=== PATIENT | female | born 1985 | race Two or more races ===

== ENCOUNTER 2016-06-28 13:37 | Emergency (ER) | payer OTHER ==
[2016-06-28 13:44] VITALS: RESP 14; O2SAT 96
--- NOTE | 2016-06-28 14:15 | EDPHY ---
H & P Stated Complaint: nausea s/p BM w/ blood Time Seen by Provider: 06/28/16 14:15 - Personal History LMP (Females 10-55): 22-28 Days Ago Current Tetanus/Diphtheria Vaccine: Unsure Current Tetanus Diphtheria and Acellular Pertussis (TDAP): Unsure - Medical/Surgical History Hx Asthma: No Hx Chronic Respiratory Disease: No Hx Diabetes: No Hx Cardiac Disease: No Hx Renal Disease: No Hx Cirrhosis: No Hx Alcoholism: No Hx HIV/AIDS: No Hx Splenectomy or Spleen Trauma: No Other PMH: DENIES - Social History Smoking Status: Never smoked Constitutional: Initial Vital Signs Temperature (C) 36.4 C 06/28/16 13:42 Heart Rate 71 06/28/16 13:42 Respiratory Rate 14 06/28/16 13:42 Blood Pressure 101/69 06/28/16 13:42 O2 Sat (%) 96 06/28/16 13:42 O2 Delivery Mode Room Air Allergies/Adverse Reactions: No Known Allergies Allergy (Unverified 09/03/15 09:02) Home Medications: Medication Instructions Recorded NK [No Known Home Meds] 09/03/15 Medical Decision Making ED Course/Re-evaluation: CHIEF COMPLAINT: Left-sided abdominal pain, blood in stool. HISTORY OF PRESENT ILLNESS: The patient is a 31-year-old female who presents with one week of left abdominal pain and bloody stool. Her pain does not radiate and is moderate in nature. She denies alleviating or provoking factors. She reports that the stool is very hard and she notices the blood after her bowel movements. She denies vomiting or other complaints. Her last bowel movement was this morning. REVIEW OF SYSTEMS: A 10 point review of systems was performed and is negative with the exception of the elements mentioned in the history of present illness. PHYSICAL EXAM: HR, BP, O2 Sat, RR. Temp noted General Appearance: Alert, well hydrated, appropriate, and non-toxic appearing. Head: Atraumatic without scalp tenderness or obvious injury Eyes: Pupils equal, round, reactive to light and accommodation, EOMI, no trauma , no injection. Ears: Clear bilaterally, no perforation, normal landmarks Nose: Atraumatic, no rhinorrhea, clear. Throat: There is no erythema or exudates, no lesions, normal tonsils, mucus membranes moist. Neck: Supple, 2+ carotid upstroke, nontender, no lymphadenopathy. Respiratory: No retractions, no distress, no wheezes, and no accessory muscle use. Lungs are clear to auscultation bilaterally. Cardiovascular: Regular rate and rhythm, no murmurs, rubs, or gallops. Bilateral carotid, radial, dorsalis pedis, and posterior tibial pulses intact. Good capillary refill all extremities. Gastrointestinal: Diffuse abdominal tenderness. Abdomen is soft, non-distended, no masses, no rebound, no guarding, no peritoneal signs. Musculoskeletal: Normal active ROM of all extremities, atraumatic. Neurological: Alert, appropriate, and interactive. The patient has normal DTRs and non-focal cranial nerves, motor, sensory, and cerebellar exam. Skin: No rashes, good turgor, no nodules on palpation. Past medical history:Denies. Past surgical history:Denies. Family history:Denies. Social history:Here with daughter. DIAGNOSTICS/PROCEDURES/CRITICAL CARE TIME: Study: Pelvic ultrasound. Indication: , abdominal pain. Results: 6 week IUP. I viewed the images myself on the PACS system. DIFFERENTIAL DIAGNOSIS: The differential diagnosis for the patient's abdominal pain included but was not limited to constipation, ovarian cyst, pelvic inflammatory disease, ovarian torsion, urinary tract infection, ectopic , cholecystitis, and appendicitis. MEDICAL DECISION MAKING: The patient is a 31-year-old female who presents with left-sided abdominal pain and blood in her stool. On exam she has diffuse tenderness. I have high concern for constipation and hemorrhoids. I ordered an abdominal x-ray with 3 views. Patient's Urine is positive for . I will rule out ectopic with pelvic ultrasound. The patient's ultrasound shows an IUP of 6 weeks. The patient will be discharged with instructions to use Miralax. I discussed the results of her ultrasound with her and answered her questions. She was given return precautions and warnings prior to leaving. She is comfortable with the plan. - Data Points Laboratory Results: 06/28/16 14:18 Urine Color YELLOW Urine Appearance MODERATELY TURBID Urine pH 8.0 H (5.0-7.5) Ur Specific [place] 1.020 (1.002-1.030) Urine Protein NEGATIVE (NEGATIVE) Urine Ketones NEGATIVE (NEGATIVE) Urine Blood NEGATIVE (NEGATIVE) Urine Nitrate NEGATIVE (NEGATIVE) Urine Bilirubin NEGATIVE (NEGATIVE) Urine Urobilinogen NEGATIVE EU (0.2-1.0) Ur Leukocyte Esterase NEGATIVE (NEGATIVE) Ur Culture Indicated? NOT INDICATED (NI) Urine Glucose NEGATIVE (NEGATIVE) Urine Test POSITIVE Departure - Departure Disposition: Home, Routine, Self-Care Clinical Impression: Constipation Qualifiers: Constipation type: unspecified constipation type Qualifier Code: (K59.00) Constipation, unspecified Qualifiers: Weeks of gestation: less than 8 weeks Qualifier Code: (Z3A.01) Less than 8 weeks gestation of Hemorrhoid Qualifiers: Hemorrhoid type: unspecified Qualifier Code: (K64.9) Unspecified hemorrhoids Condition: Good Instructions: Constipation (ED), Hemorrhoids (ED) Additional Instructions: Try using Miralax for your constipation. Adjust the dose until your stool is soft. Follow up with your primary care provider this week for reevaluation. Return to the emergency department if you experience serious worsening of condition. Referrals: [facility] [Outside] - As per Instructions Report Scribed for: Zach Cooper Report Scribed by: Alessio Mcdonough Date of Report: 06/28/16 Time of Report: 14:29
[2016-06-28 14:31] LABS: COLOR YELLOW; LEUKOCYTE ESTERASE,URINE NEGATIVE (NEGATIVE); NITRITE,URINE NEGATIVE (NEGATIVE)
--- NOTE | 2016-06-28 16:15 | US ---
Ultrasound Obstetrics First Trimester June 28, 2016 1529 hours Indication: Constipation and abdominal pain. Comparison: None relevant. Findings: The uterus is unremarkable in appearance. There is an IUP. There is normal motion. A heart rate is present at 144 beats a minute. Yolk sac is 3 mm. The crown-rump length is 7.68 mm corre sponding to 6 weeks and 5 days with an estimated due date of February 16, 2017. Right ovary measures 3.7 x 1.3 x 2.5 cm with normal color Doppler flow and a resistive index of 0.50. Left ovary measures 2.7 x 2.5 x 2.4 cm with normal color Doppler flow and resistive index of 0.64. Th ere is a 1.8 x 1.8 x 1.2 cm corpus luteum. Impression: Living nelson IUP with a crown-rump length corresponding to 6 weeks 5 days and a heart beat of 144 beats per minute. Critical results relayed by Dr. Pastrana to Dr. Cooper on June 28, 2016 at 1610 hours.
[2016-06-28 16:37] VITALS: BP 128/78; PULSE 78; TEMP 98.4
== END 2016-06-28 16:30 | disposition home or self-care (01) ==
DX: O22.41 Hemorrhoids in pregnancy, first trimester (principal); O99.611 Diseases of the digestive system complicating pregnancy, first trimester; K59.00 Constipation, unspecified; Z3A.01 Less than 8 weeks gestation of pregnancy

== ENCOUNTER → 2016-10-08 | Outpatient (CLI) | payer OTHER | LOC: FIMAGING 09:50 | PROVIDERS: ATTEND Physician Assistant | DX: Z34.82 Encounter for supervision of other normal pregnancy, second trimester (principal); Z3A.21 21 weeks gestation of pregnancy ==

== ENCOUNTER 2016-11-19 20:02 | Observation (INO) | payer OTHER ==
--- NOTE | 2016-11-19 21:56 | CPEKG ---
Heart Rate: 64 RR Interval: 938 P-R Interval: 152 QRSD Interval: 82 QT Interval: 376 QTC Interval: 388 P Empire: 63 QRS Empire: 49 T Wave Empire: 54 EKG Severity - NORMAL ECG - EKG Impression: SINUS RHYTHM Electronically Signed By: Elicia Lubin 20-Nov-2016 13:51:51
[2016-11-19 22:05] LABS: % IMMATURE GRANULYOCYTES 0.9 % (0.0-1.1); ABSOLUTE IMMATURE GRANULOCYTES 0.09 10^3/uL (0.00-0.10); ADD DIFF? NO; ADD MORPH? NO; ADD SCAN? NO; ATYPICAL LYMPHOCYTE FLAG 0 (0-99); FRAGMENT RBC FLAG 0 (0-99); HEMATOCRIT 32.1 % (38.0-47.0); HEMOGLOBIN 11.2 g/dL (12.6-16.3); LEFT SHIFT FLG 0 (0-99); LIPEMIA HEMOLYSIS FLAG 90 (0-99); MEAN CELL HEMOGLOBIN CONCENTR. 34.9 g/dL (32.4-36.7); MEAN CELL VOLUME 86.1 fL (81.5-99.8); MEAN PLATELET VOLUME 10.2 fL (8.7-11.7); PLATELET CLUMPS FLAG 0 (0-99); PLATELET COUNT 201 10^3/uL (150-400); RED BLOOD CELL COUNT 3.73 10^6/uL (4.18-5.33); RED CELL DISTRIBUTION WIDTH 12.8 % (11.5-15.2)
[2016-11-19 23:25] LABS: COLOR PALE YELLOW; LEUKOCYTE ESTERASE,URINE TRACE (NEGATIVE); NITRITE,URINE NEGATIVE (NEGATIVE)
[2016-11-19 23:34] LABS: RBC,URINE 15-25 /hpf (0-3)
--- NOTE | 2016-11-20 00:10 | OBPROG ---
OBG Progress Note Assessment/Plan: Assessment: at 27w2d with abd pain and dizziness Hemodynamically stable Not in labor Exam consistent with round ligament pain and pubic symphysis separation No evidence of UTI. Cannot completely r/o intraabdominal infection such as appy but suspicion is low given completely normal vitals signs and fact pain has been ongoing for 2 months status reassuring Dizziness work-up neg (orthostatics, EKG, CBC, glucose)--pt able to ambulate without assistance, states dizziness was due specifically to pain Plan: Given info regarding pubic symphysis separation Follow-up as scheduled with her primary [employer] this week Given note to be off work for this week Continue hydration Discussed precautions to return, including fevers, worsening pain, decreased FM , vaginal bleeding, contractions, LOF, other concerns Pt expressed understanding, all questions answered 11/20/16 00:14 11/20/16 00:18 Subjective: Patient is a at 27w2d who presents for pelvic pain that has been going on for 2 months and also endorses dizziness. She has a history of an uncomplicated in 2010. She is followed this by [facility] and she states her has been uncomplicated. However, about 2 months ago she began to develop sharp pain in the bilateral groin area, and also feels like she is being "opened" when she tries to walk. She was in quite a bit of discomfort today at work ([employer] at [employer]) and her co-workers put her in a wheelchair and brought her to L&D for evaluation. She denies VB. Baby is active. She does not feel contractions. No dysuria or vaginal discharge. She states she does sometimes feel like she is going to pass out when she stands, however she states that this is specifically due to her discomfort. She started this at 110# and states she now weighs 120#. She states she was heavier in her prior , but does not know why she has lost weight between then and now. She denies any fevers, though states she has felt cold the entire . Of note she was checked by the RN at time of presentation as she was noted to be in discomfort and was found to be 1 cm dilated. PMH: denies PSH: Denies here with daughter and Objective: 11/19/16 21:50 116/65 75 20 (orthostatics WNL, see tracevue) Gen: resting, NAD. Able to stand slowly and ambulate, denies dizziness Resp: unlabored CV: RRR Abd: gravid c/w gestational age, soft, nontender Ext: no edema Moderate discomfort with lateral movement of uterus (c/w RLP) and also pressure on SI joint (c/w pelvic girdle pain) FHR: baseline 130, mod tray, + accels, no decels [place]: none UA: trace LE, 15-25 RBCs, no e/o evidence EKG: NSR POC glucose: 77 - SVE Dilation (cm): 0 Effacement (%): 0 Station: -3 Current Contraction Pattern: Other (Specify) (none) FHR Pattern Variability: Moderate Membranes: Intact Uterine Tone: Firm (nontender) ICD10 Worksheet Patient Problems: Problems Problem Status Onset Pain in symphysis pubis during Acute
== END 2016-11-20 00:28 | disposition home or self-care (01) ==
LOC: FLD 20:02
PROVIDERS: ADMIT Obstetrics & Gynecology; ATTEND Obstetrics & Gynecology
DX: O26.712 Subluxation of symphysis (pubis) in pregnancy, second trimester (principal); R10.2 Pelvic and perineal pain; R42 Dizziness and giddiness; Z3A.27 27 weeks gestation of pregnancy
CPT/HCPCS: 93005; G0378

== ENCOUNTER 2017-02-12 08:48 | Inpatient (IN) | payer OTHER ==
[2017-02-12] MEDS ORDERED: OXYTOCIN/RINGERS LACTATE 1,000 ML IV PRN (08:59)
[2017-02-12] MEDS ORDERED: OLIVE OIL 118 ML BTL ONE (08:59)
[2017-02-12] MEDS ORDERED: EPSOM SALT 454 GM TP PRN (08:59)
[2017-02-12] MEDS ORDERED: LIDOCAINE 1% 300 MG/30 ML SDV ONE (08:59)
[2017-02-12] MEDS ORDERED: LR 1,000 ML IV PRN (08:59)
[2017-02-12] MEDS ORDERED: TERBUTALINE SULFATE 1 MG/ML VIAL IV PRN (08:59)
[2017-02-12] MEDS ORDERED: OLIVE OIL 118 ML BTL MISC PRN (08:59)
[2017-02-12] MEDS ORDERED: TERBUTALINE SULFATE 1 MG/ML VIAL ONE (09:00)
[2017-02-12] MEDS ORDERED: MISOPROSTOL 200 MCG TAB ONE (09:00)
[2017-02-12] MEDS ORDERED: AMMONIA AROMATIC 1 EACH AMP IH ONE (09:00)
[2017-02-12 09:14] LABS: % IMMATURE GRANULYOCYTES 1.3 % (0.0-1.1); ABSOLUTE IMMATURE GRANULOCYTES 0.12 10^3/uL (0.00-0.10); ADD DIFF? NO; ADD MORPH? NO; ADD SCAN? NO; ATYPICAL LYMPHOCYTE FLAG 10 (0-99); FRAGMENT RBC FLAG 0 (0-99); HEMATOCRIT 35.7 % (38.0-47.0); HEMOGLOBIN 12.3 g/dL (12.6-16.3); LEFT SHIFT FLG 10 (0-99); LIPEMIA HEMOLYSIS FLAG 90 (0-99); MEAN CELL HEMOGLOBIN 29.7 pg (27.9-34.1); MEAN CELL HEMOGLOBIN CONCENTR. 34.5 g/dL (32.4-36.7); MEAN CELL VOLUME 86.2 fL (81.5-99.8); MEAN PLATELET VOLUME 10.8 fL (8.7-11.7); PLATELET CLUMPS FLAG 0 (0-99); PLATELET COUNT 185 10^3/uL (150-400); RED BLOOD CELL COUNT 4.14 10^6/uL (4.18-5.33); RED CELL DISTRIBUTION WIDTH 13.2 % (11.5-15.2)
[2017-02-12] MEDS: IBUPROFEN 600 MG TAB PO PRN ×3 (09:53→22:17)
--- NOTE | 2017-02-12 09:58 | OBPROG ---
OBG Labor Progress Note Assessment/Plan: Assessment:On admit eric q2-3 minutes exam 9/100/0 cephalic denies gbs denies medical or complications srom clear fluid 0700 Plan:expectant management of labor 02/12/17 09:57 Subjective: Came in with regular contractions eric regularly since 0500. Rom 0700 Objective: 02/12/17 09:00 - SVE Dilation (cm): 9 Effacement (%): 100 Station: 0 Dilation Complete Date: 02/12/17 Dilation Complete Time: 09:20 - Procedures Non-surgical Procedures: Amniotomy - Physical Exam General Appearance: WD/WN, alert, no apparent distress Respiratory: chest non-tender, lungs clear, normal breath sounds Cardiac/Chest: regular rate, rhythm Abdomen: normal bowel sounds Extremities: normal range of motion, Mireya's sign (negative bilaterally) DTR- Lower Extremities: Knee (R): 1+, Knee (L): 1+ (no clonus) Skin: normal color, warm/dry Neuro/Psych: no motor/sensory deficits, alert, normal mood/affect, oriented x 3 ICD10 Worksheet Patient Problems: Problems Problem Status Onset Pain in symphysis pubis during Acute
[2017-02-12] MEDS ORDERED: ACETAMINOPHEN 325 MG TAB PO PRN (09:59)
[2017-02-12] MEDS ORDERED: DOCUSATE SODIUM 100 MG CAP PO PRN (09:59)
[2017-02-12] MEDS ORDERED: SIMETHICONE 80 MG TAB CHEW PO PRN (09:59)
[2017-02-12] MEDS ORDERED: HYDROCODONE/APAP 5/325 TAB PO PRN (09:59)
[2017-02-12] MEDS ORDERED: HYDROCORTISONE 0.5% CREAM TP PRN (09:59)
--- NOTE | 2017-02-12 10:04 | OBDEL ---
Info Type: Vaginal GBS+: No Indications for Delivery: Spontaneous Labor, SROM Vaginal Delivery - Labor and Delivery Onset of Contractions Date: 02/12/17 Onset of Contractions Time: 05:00 Onset of Contractions Type: Spontaneous Rupture of Membranes Date: 02/12/17 Rupture of Membranes Time: 07:00 Rupture of Membranes Type: Spontaneous (arom forebag at delivery clear fluid) Dilation Complete Date: 02/12/17 Dilation Complete Time: 09:20 Non-surgical Procedures: Amniotomy Laceration: 2nd Degree Repair: 2-0, 3-0, Vicryl Vaginal Sponge Count Correct: Yes Vaginal Needle Count Correct: Yes Vaginal Sweep Performed: No EBL: 350 Delivery Events: None - Medications Labor Augmentation/Induction Methods Used: None [place] Data Virk Delivery Date: 02/12/17 Delivery Time: 09:23 JASVIR: 02/17/17 Gestational Age: 39 week(s) and 2 day(s) Sex of Infant: Female Score (1 Min): 9 Score (5 Min): 9 ICD10 Worksheet Patient Problems: Problems Problem Status Onset Pain in symphysis pubis during Acute
--- NOTE | 2017-02-12 10:53 | GHP ---
[f rep st] HISTORY AND PHYSICAL DATE OF ADMISSION: 02/12/2017 HISTORY OF PRESENT ILLNESS: Patient is from [facility] where able to get prenatals. Patient has been receiving routine care since early on in her . Patient is a 31-year-old 2, para 1 with an EDC of 02/16/2017 , which gives her a gestational age of 39 and 2/7 weeks, who comes in with complaint of regular contractions since 5 a.m. on 02/12/2017. States rupture of membranes at 7 a.m. on 02/12/2017. Positive bloody show, contractions that are q.2-3 minutes and painful. States feeling positive movement. MEDICAL HISTORY: Benign. SURGICAL HISTORY: Benign. FAMILY HISTORY: Noncontributory. HISTORY: 2, para 1. Previous vaginal delivery, 7 pounds 5 ounces, a female. At that delivery, patient also had an operative vaginal delivery with a vacuum. SOCIAL HISTORY: Patient is . Has a daughter who is 6. No tobacco use. No drug use. GYNECOLOGICAL HISTORY: Benign. Patient has previously used OCPs for control. LABS: Patient is A positive, antibody negative. RPR is nonreactive. Hepatitis is negative. HIV is negative. Gonorrhea and chlamydia are negative. GBS was negative per patient. PHYSICAL ASSESSMENT: GENERAL: Patient is awake, alert, oriented x3. LUNGS: Clear bilaterally. ABDOMEN: Bowel sounds are positive in all 4 quadrants. EXTREMITIES: DTRs are 1+ bilaterally. Homans sign is negative bilaterally. Patient is coping fair through the contractions that are q.2-3 minutes. PLAN OF CARE: GBS negative. Expectant management of labor. Consult physician , Dr. Chayo Freedman, as needed. /[id number]/MODL MTDD
[2017-02-12] MEDS ORDERED: METHYLERGONOVINE MAL 0.2 MG/ML INJ IM ONE (11:49)
--- NOTE | 2017-02-12 11:55 | OBPP ---
Progress Note Assessment/Plan: Assessment:up to void with assistance after delivery. FF@u-2 after void and fundal massage 350cc blood loss after up to the bathroom IV pitocin completed #1 methergine ordered before patient up to the bathroom. attempt to void completed before methergine first methergine reordered with call from nurse about increased bleeding after up to bathroom also ordered In and out cath. with assessment of patient ffu-2 . patient felt able to empty bladder when up to void. Recanted order for in and out cath Plan:keep in labor and delivery longer assess bleeding routinely. methergine po x 24h 02/12/17 09:57 02/12/17 11:50 Objective: 02/12/17 09:00 Patient ABO/Rh A POSITIVE 02/12/17 09:00 Uterine Position/Fundal Height: Umbilicus -2
[2017-02-12 16:27] VITALS: O2SAT 96
[2017-02-12] MEDS: METHYLERGONOVINE MAL 0.2 MG TAB PO SCH (19:51)
[2017-02-12 20:25] VITALS: RESP 16
[2017-02-13] MEDS: METHYLERGONOVINE MAL 0.2 MG TAB PO SCH ×2 (02:16→09:51)
[2017-02-13] MEDS: IBUPROFEN 600 MG TAB PO PRN ×2 (04:49→11:56)
--- NOTE | 2017-02-13 08:57 | OBPP ---
Progress Note Assessment/Plan: Assessment: 1) s/p PPD # 1 - pt is stable 2) Anemia - pt is asymptomatic Plan: Continue routine pp care Plan for d/c home later today Instructions reviewed with pt No Rx Cont Motrin, PNV, colace and iron Pelvic rest RTC in 4 and 6 weeks for pp check 02/13/17 08:54 Subjective: Pt seen and examined. Doing well, no complaints. Minimal cramping. Moderate lochia. Pt is OOB, dwayne regular diet, voiding without difficulty and passing flatus. No BM yet. BF without difficulty. Wants to go home today. She wants to f /u with [facility] for pp care due to insurance change. Objective: 02/13/17 04:50 Patient ABO/Rh A POSITIVE 02/12/17 09:00 Temp Pulse Resp BP Pulse Ox 37.1 C 61 16 92/61 L 96 02/12/17 19:15 02/12/17 19:15 02/12/17 19:15 02/12/17 19:15 02/12/17 19:15 Uterine Position/Fundal Height: Umbilicus -2 Uterine Tone: Firm Physical Exam - Physical Exam General Appearance: WD/WN, alert, no apparent distress Respiratory: lungs clear, normal breath sounds Cardiac/Chest: regular rate, rhythm Abdomen: normal bowel sounds, non-tender, soft, flatus (+) Extremities: non-tender, normal inspection Skin: normal color, warm/dry Neuro/Psych: alert, normal mood/affect, oriented x 3
[2017-02-13] MEDS ORDERED: IRON POLYSAC/IRON HEME 28 MG TAB PO SCH (09:00)
--- NOTE | 2017-02-13 09:02 | OBGCSDC ---
General Delivery Information - General Info : 2 Para: 1 Delivery Physician/CNM: Yadi Rivas Admission Date: 02/12/17 Labs: Patient ABO/Rh A POSITIVE 02/12/17 09:00 Hct 31.0 % (38.0-47.0) L 02/13/17 04:50 Vaginal - Diagnosis Labor: Spontaneous Rupture of Membranes Type: Spontaneous (arom forebag at delivery clear fluid) Laceration: 2nd Degree Repair: 2-0, 3-0, Vicryl Delivery Events: None - Operations/Procedures Non-surgical Procedures: Amniotomy L&D Analgesia/Anesthesia Type: Local - Hospital Course Antepartum: Anemia; Care at [facility] Intrapartum: Presented at 9 cm and ROM at 0700 02/12. Uncomplicated with 2 degree lac : Uncomplicated. Mod lochia. Mild cramping. BF without difficulty. - Delivery Non-surgical Procedures: Amniotomy L&D Analgesia/Anesthesia Type: Local [place] Data Virk Delivery Date: 02/12/17 Delivery Time: : JASVIR: 02/16/17 Gestational Age: 39 week(s) and 4 day(s) Sex of Infant: Female [place] Weight (gm): 3142 kg Score (1 Min): 9 Score (5 Min): 9 Discharge Information - Discharge Information Discharge Medications: Iron, Ibuprofen, Vitamins Condition: Good Instruction/Follow Up: Four Weeks, Six Weeks Discharge Physician/CNM: Felicia Davila
[2017-02-13 09:20] VITALS: BP 96/64; PULSE 75; TEMP 98.5
== END 2017-02-13 13:30 | disposition home or self-care (01) | DRG 775 ==
LOC: FLD 08:48 → FOB 14:32
PROVIDERS: ADMIT Advanced Practice Midwife; ATTEND Obstetrics & Gynecology
PROC: 10907ZC Drainage of Amniotic Fluid, Therapeutic from Products of Conception, Via Natural or Artificial Opening (ICD-10-PCS; principal; 2017-02-12)
PROC: 10E0XZZ Delivery of Products of Conception, External Approach (ICD-10-PCS; principal; 2017-02-12)
PROC: 0KQM0ZZ Repair Perineum Muscle, Open Approach (ICD-10-PCS; principal; 2017-02-12)
DX: O90.81 Anemia of the puerperium (principal); O70.1 Second degree perineal laceration during delivery; Z3A.39 39 weeks gestation of pregnancy; Z37.0 Single live birth
CPT/HCPCS: J2590; J3105

== ENCOUNTER 2017-09-19 22:50 | Emergency (ER) | payer MEDICAID, OTHER ==
--- NOTE | 2017-09-19 23:15 | EDPHY ---
General Time Seen by Provider: 09/19/17 23:04 Narrative: CHIEF COMPLAINT: Right ear pain x3 weeks HISTORY OF PRESENT ILLNESS: Patient complains of right-sided ear pain x3 weeks. This is intermittent pain and pressure. It comes and goes but never fully resolved. She reports some decreased hearing at time. She describes this as a muffled hearing from the right. There is no tinnitus or ringing of the ears. No headache. No neck pain or stiffness. No rash or lesion. No barotrauma. No recent scuba diving. She does not swim. She has no sore throat or cough at this time, but she did have an upper respiratory type of infection 2-3 weeks ago. She has not been evaluated for this yet. She is not taking medications for this. She has been putting garlic in her right ear with no improvement of her symptoms. REVIEW OF SYSTEMS: Ten systems reviewed and are negative unless otherwise noted in the HPI PCP: [facility] SPECIALISTS: None PAST MEDICAL HISTORY: Denies any medical diagnoses PAST SURGICAL HISTORY: No recent surgery SOCIAL HISTORY: Never smoker. No drug or alcohol use. Lives here in [place]. Works here at [employer] in [place]. FAMILY HISTORY: Noncontributory EXAMINATION General Appearance: Alert, no distress Head: normocephalic, atraumatic Eyes: Pupils equal and round, no conjunctival pallor or injection. No nystagmus. EOM symmetric ENT, Mouth: Mucous membranes moist. Uvula midline. Airway widely patent. The left EAC and TMs are unremarkable. The right EAC is clear without edema. The right TM is clear but does have moderate serous fluid behind it. There is no perforation. No erythema of the right mastoid. There are no vesicular lesions or rash preauricular, postauricular or in the EAC. Hearing is intact to normal conversation. Neck: Normal inspection, supple, non-tender. No meningeal signs. Respiratory: Lungs are clear to auscultation. No wheezing rhonchi or crackles Cardiovascular: Regular rate and rhythm. No murmur Gastrointestinal: Abdomen is soft and nontender Back: non-tender, no bony abnormalities Neurological: A&O, nonfocal, normal gait GCS 15. Skin: Warm and dry, no rash Extremities: Nontender, no pedal edema Psychiatric: Mood and affect normal DIFFERENTIAL DIAGNOSES: Including but not limited to serous otitis media, otitis media, mastoiditis, many years disease MDM: 11:15 p.m. Right serous otitis media without acute otitis media, suppurative otitis media or perforation. There are no vesicles around the external auditory canal or preauricular skin. No signs of infection to the mastoid bone. Her hearing is intact to normal conversation. No nystagmus. I do feel she would benefit from pseudoephedrine, anti-inflammatories and short course of steroid. We discussed giving doses here but she is declining these. She would like to have a prescription to take in the morning as she is afraid she would not be able to sleep. I do not feel she warrants any imaging at this time. I do not feel that many years is likely as she has no tinnitus or hearing loss at this time. She will be discharged home stable condition with instructions to follow up with primary care physician, and I have provided the ENT on-call physician for her as well. SUPERVISION: This patient was independently evaluated without direct involvement of or examination by the attending physician. - History Smoking Status: Never smoked - Objective Vital Signs: Initial Vital Signs Temperature (C) 97.9 F 09/19/17 22:53 Heart Rate 64 09/19/17 22:53 Respiratory Rate 16 09/19/17 22:53 Blood Pressure 108/68 09/19/17 22:53 O2 Sat (%) 95 09/19/17 22:53 O2 Delivery Mode Room Air Allergies/Adverse Reactions: No Known Allergies Allergy (Unverified 09/03/15 09:02) Home Medications: Medication Instructions Recorded Dexamethasone [Decadron 4 MG (*)] 8 mg PO ONCE #2 tab 09/19/17 Pseudoephedrine HCl 30 mg PO Q6 PRN #12 tablet 09/19/17 Departure - Departure Disposition: Home, Routine, Self-Care Clinical Impression: Acute serous otitis media, right ear Qualifiers: Recurrence: not specified as recurrent Qualified Code(s): H65.01 - Acute serous otitis media, right ear Condition: Good Instructions: Pseudoephedrine (By mouth), Serous Otitis Media (ED) Additional Instructions: 1. Pseudoephedrine [id number] as discussed. You will need to ask the pharmacist for this as this is a controlled medication but 2 do not need a prescription 2. Aleve 2 pills in the morning and 1 in the evening for the next 5-7 days 3. Contact established physician tomorrow morning for outpatient follow-up 4. Decadron steroid prescription x1 tomorrow morning when you received a prescription 5. Return to emergency department for any changes in hearing, tinnitus as discussed, bleeding or drainage from the right ear Referrals: [facility],. [Primary Care Provider] - As per Instructions Santo Negron MD [Medical Doctor] - As per Instructions Prescriptions: Dexamethasone [Decadron 4 MG (*)] 8 mg PO ONCE #2 tab Pseudoephedrine HCl 30 mg PO Q6 PRN #12 tablet PRN Reason: ear pain/pressure
[2017-09-19 23:18] VITALS: BP 113/69
== END 2017-09-19 23:29 | disposition home or self-care (01) ==
DX: H65.01 Acute serous otitis media, right ear (principal)